=== PATIENT | male | born 1990 | race Caucasian/White ===

== ENCOUNTER 2021-08-26 21:11 | Emergency (ER) | payer MEDICAID ==
[2021-08-26] MEDS ORDERED: LORazepam 1 MG Tab PO ONE (21:16)
[2021-08-26] MEDS ORDERED: LORazepam 2 MG/ML SDV IVPUSH ONE (21:25)
[2021-08-26] MEDS ORDERED: LORazepam 2 MG/ML SDV IM ONE (21:25)
[2021-08-26] MEDS ORDERED: Ondansetron 4 MG/2 ML SDV IVPUSH ONE (21:26)
[2021-08-26] MEDS ORDERED: MVI, Adult with Vitamin K 10 ML, Thiamine 100 MG, Folic Acid 1 MG, Magnesium Sulfate 3 ... IV SCH ×5 (21:30)
--- NOTE | 2021-08-26 21:34 | EDM.PDOC ---
ED HPI GENERAL MEDICAL PROBLEM - General Stated Complaint: INTOXICATED Time Seen by Provider: 08/26/21 21:12 Source of Information: Reports: Patient - History of Present Illness INITIAL COMMENTS - FREE TEXT/NARRATIVE: 30-year-old gentleman came to the emergency department after having a seizure according to the patient. He states that he drinks alcohol daily. He has not had any alcohol for about 24 hours. He states that he normally drinks at least 12 beers and also drinks hard liquor daily. He states the beers are usually 16 ounce. He occasionally will drink double alcohol content beer. He has had an ongoing drinking problem for many years. Denied any other acute medical complaints. He states that he just feels really bad, really weak. - Related Data Allergies Allergy/AdvReac Type Severity Reaction Status Date / Time No Known Allergies Allergy Verified 08/26/21 22:16 Home Meds: Home Meds . [Unable to Verify Home Med List] 08/26/21 [History] ED ROS GENERAL - Review of Systems Review Of Systems: See Below Constitutional: Reports: Weakness, Fatigue HEENT: Reports: No Symptoms Respiratory: Reports: No Symptoms Cardiovascular: Reports: No Symptoms Endocrine: Reports: No Symptoms GI/Abdominal: Reports: Nausea, Vomiting : Reports: No Symptoms Musculoskeletal: Reports: No Symptoms Skin: Reports: No Symptoms Neurological: Reports: No Symptoms Psychiatric: Reports: No Symptoms Hematologic/Lymphatic: Reports: No Symptoms Immunologic: Reports: No Symptoms ED EXAM, GENERAL - Physical Exam Exam: See Below Exam Limited By: No Limitations General Appearance: Alert, Mild Distress Eye Exam: Bilateral Eye: EOMI Head: Atraumatic, Normocephalic Neck: Normal Inspection Respiratory/Chest: No Respiratory Distress, Lungs Clear, Other (Tachypnea) Cardiovascular: No Murmur, Tachycardia Peripheral Pulses: 2+: Radial (L), Radial (R), Dorsalis Pedis (L), Dorsalis Pedis (R) GI/Abdominal: Normal Bowel Sounds, Soft, Non-Tender Back Exam: Normal Inspection Extremities: Normal Inspection Neurological: Alert, Oriented, Normal Cognition Psychiatric: Anxious Skin Exam: Warm, Dry Course - Vital Signs Text/Narrative:: Review of lab work shows that the patient is negative for COVID-19. Blood analysis shows that he is positive for methamphetamines. Blood alcohol level is less than 0.03. He has elevated liver enzymes but normal alkaline phosphatase, likely prior hepatitis. Patient also has acute kidney injury likely secondary to dehydration secondary to vomiting. Mildly reduced potassium. Patient was given banana bag, Zofran, 1 mg Ativan IV followed by D5 half-normal saline with 20 mill EQ potassium chloride. Note that patient's blood glucose was 71. Patient states that he felt better after the banana bag was given. Last Recorded V/S: Last Vital Signs Temp 36.6 C 08/26/21 21:20 Pulse 1 L 08/26/21 21:20 Resp 18 08/26/21 21:20 BP 167/87 H 08/26/21 21:20 Pulse Ox 96 08/26/21 21:20 - Orders/Labs/Meds Orders: Active Orders 24 hr Category Date Time Status Notify Provider [RC] PRN Care 08/26/21 22:22 Active POC Glucose [Blood Glucose Check, Bedside] [RC] ONETIME Care 08/26/21 21:26 Active Dextrose 5%-1/2 Normal Saline with KCl 20 mEq @ 125 mL/ Med 08/27/21 00:15 Ordered Hr (1000 mL) D5 1/2 NS w/ 20 mEq/L KCl 1,000 ml IV ASDIRECTED MVI, Adult with Vitamin K [Infuvite Adult] 10 ml Med 08/26/21 21:30 Active Thiamine [Vitamin B-1] 100 mg Folic Acid 1 mg Magnesium Sulfate [Magnesium Sulfate 50%] 3 gm Sodium Chloride 0.9% [Normal Saline] 1,000 ml IV ASDIRECTED Medication Orders Multivitamins/Minerals 10 ml/Thiamine HCl 100 mg/ Folic Acid 1 mg/ Magnesium Sulfate 3 gm/ Sodium Chloride 1,017.2 mls @ 999 mls/hr IV ASDIRECTED [facility] Last Admin: 08/26/21 21:50 Dose: 999 mls/hr Documented by: ILYA Potassium Chloride/Dextrose/Sod Cl (D5 1/2 Ns W/ 20 Meq/L Kcl) 1,000 mls @ 125 mls/hr IV ASDIRECTED [facility] Labs: Laboratory Tests 08/26/21 08/26/21 08/26/21 Range/Units 21:35 21:35 21:35 WBC 4.7 (3.2-10.1) x10-3/uL RBC 4.15 (3.90-5.90) x10(6)uL Hgb 13.3 (12.9-17.7) g/dL Hct 39.7 (38.3-50.1) % MCV 95.7 (80.8-98.7) fL MCH 32.1 (27.0-33.3) pg MCHC 33.6 (28.7-35.3) g/dL RDW 18.2 H (12.4-15.0) % Plt Count 273 (117-477) x10(3)uL MPV 7.7 (6.7-11.0) fL Neut % (Auto) 54.6 (40.3-71.8) % Lymph % (Auto) 20.7 (15.8-45.3) % [place] % (Auto) 22.2 H (5.5-15.2) % Eos % (Auto) 1.0 (0.1-6.8) % Baso % (Auto) 1.5 (0.3-3.8) % Neut # (Auto) 2.5 (1.7-6.9) x10-3/uL Lymph # (Auto) 1.0 (0.5-4.5) x10-3/uL [place] # (Auto) 1.0 (0.0-1.2) x10-3/uL Eos # (Auto) 0.0 (0.0-0.6) x10-3/uL Baso # (Auto) 0.1 (0.0-0.3) x10-3/uL Sodium 136 (135-145) mmol/L Potassium 3.4 L (3.5-5.3) mmol/L Chloride 95 L (100-110) mmol/L Carbon Dioxide 21 (21-32) mmol/L BUN 6 L (7-18) mg/dL Creatinine 1.7 H (0.70-1.30) mg/dL Est Cr Clr Drug Dosing TNP Estimated GFR (MDRD) 47 L (>60) BUN/Creatinine Ratio 3.5 L (9-20) Glucose 71 L (80-116) mg/dL Calcium 9.6 (8.6-10.2) mg/dL Magnesium (1.8-2.5) mg/dL Total Bilirubin 1.4 H (0.1-1.3) mg/dL AST 513 H* (5-25) IU/L ALT 635 H* (12-36) U/L Alkaline Phosphatase 99 (56-112) IU/L Total Protein 8.8 H (6.0-8.0) g/dL Albumin 4.5 (3.5-5.2) g/dL Globulin 4.3 g/dL Albumin/Globulin Ratio 1.1 Urine Color (YELLOW) Urine Appearance (CLEAR) Urine pH (5.0-6.5) Ur Specific [place] (1.010-1.025) Urine Protein (NEGATIVE) mg/dL Urine Glucose (UA) (NORMAL) mg/dL Urine Ketones (NEGATIVE) mg/dL Urine Occult Blood (NEGATIVE) Urine Nitrite (NEGATIVE) Urine Bilirubin (NEGATIVE) Urine Urobilinogen (NEGATIVE) mg/dL Ur Leukocyte Esterase (NEGATIVE) Urine RBC (0-5) Urine WBC (0-5) Ur Squamous Epith Cells (NS,R,O) Urine Bacteria (NS) Urine Opiates Screen (NEGATIVE) Ur Buprenorphine Scrn (NEGATIVE) Ur Oxycodone Screen (NEGATIVE) Urine Methadone Screen (NEGATIVE) Ur Propoxyphene Screen (NEGATIVE) Ur Barbiturates Screen (NEGATIVE) Ur Tricyclics Screen (NEGATIVE) Ur Phencyclidine Scrn (NEGATIVE) Ur Amphetamine Screen (NEGATIVE) U Methamphetamines Scrn (NEGATIVE) U Benzodiazepines Scrn (NEGATIVE) U Cocaine Metab Screen (NEGATIVE) U Marijuana (THC) Screen (NEGATIVE) Ethyl Alcohol < 0.03 (<0.03) % SARS-CoV-2 RNA (KATT) (NEGATIVE) 08/26/21 08/26/21 08/26/21 Range/Units 21:35 21:40 21:40 WBC (3.2-10.1) x10-3/uL RBC (3.90-5.90) x10(6)uL Hgb (12.9-17.7) g/dL Hct (38.3-50.1) % MCV (80.8-98.7) fL MCH (27.0-33.3) pg MCHC (28.7-35.3) g/dL RDW (12.4-15.0) % Plt Count (117-477) x10(3)uL MPV (6.7-11.0) fL Neut % (Auto) (40.3-71.8) % Lymph % (Auto) (15.8-45.3) % [place] % (Auto) (5.5-15.2) % Eos % (Auto) (0.1-6.8) % Baso % (Auto) (0.3-3.8) % Neut # (Auto) (1.7-6.9) x10-3/uL Lymph # (Auto) (0.5-4.5) x10-3/uL [place] # (Auto) (0.0-1.2) x10-3/uL Eos # (Auto) (0.0-0.6) x10-3/uL Baso # (Auto) (0.0-0.3) x10-3/uL Sodium (135-145) mmol/L Potassium (3.5-5.3) mmol/L Chloride (100-110) mmol/L Carbon Dioxide (21-32) mmol/L BUN (7-18) mg/dL Creatinine (0.70-1.30) mg/dL Est Cr Clr Drug Dosing Estimated GFR (MDRD) (>60) BUN/Creatinine Ratio (9-20) Glucose (80-116) mg/dL Calcium (8.6-10.2) mg/dL Magnesium 2.0 (1.8-2.5) mg/dL Total Bilirubin (0.1-1.3) mg/dL AST (5-25) IU/L ALT (12-36) U/L Alkaline Phosphatase (56-112) IU/L Total Protein (6.0-8.0) g/dL Albumin (3.5-5.2) g/dL Globulin g/dL Albumin/Globulin Ratio Urine Color Yellow (YELLOW) Urine Appearance Clear (CLEAR) Urine pH 7.0 H (5.0-6.5) Ur Specific [place] 1.010 (1.010-1.025) Urine Protein 30 H (NEGATIVE) mg/dL Urine Glucose (UA) Normal (NORMAL) mg/dL Urine Ketones 50 H (NEGATIVE) mg/dL Urine Occult Blood Moderate H (NEGATIVE) Urine Nitrite Negative (NEGATIVE) Urine Bilirubin Negative (NEGATIVE) Urine Urobilinogen Normal (NEGATIVE) mg/dL Ur Leukocyte Esterase Negative (NEGATIVE) Urine RBC 0-5 (0-5) Urine WBC 0-5 (0-5) Ur Squamous Epith Cells Occasional (NS,R,O) Urine Bacteria Rare H (NS) Urine Opiates Screen Negative (NEGATIVE) Ur Buprenorphine Scrn Negative (NEGATIVE) Ur Oxycodone Screen Negative (NEGATIVE) Urine Methadone Screen Negative (NEGATIVE) Ur Propoxyphene Screen Negative (NEGATIVE) Ur Barbiturates Screen Negative (NEGATIVE) Ur Tricyclics Screen Negative (NEGATIVE) Ur Phencyclidine Scrn Negative (NEGATIVE) Ur Amphetamine Screen Positive H (NEGATIVE) U Methamphetamines Scrn Positive H (NEGATIVE) U Benzodiazepines Scrn Negative (NEGATIVE) U Cocaine Metab Screen Negative (NEGATIVE) U Marijuana (THC) Screen Positive H (NEGATIVE) Ethyl Alcohol (<0.03) % SARS-CoV-2 RNA (KATT) (NEGATIVE) 08/26/21 Range/Units 22:20 WBC (3.2-10.1) x10-3/uL RBC (3.90-5.90) x10(6)uL Hgb (12.9-17.7) g/dL Hct (38.3-50.1) % MCV (80.8-98.7) fL MCH (27.0-33.3) pg MCHC (28.7-35.3) g/dL RDW (12.4-15.0) % Plt Count (117-477) x10(3)uL MPV (6.7-11.0) fL Neut % (Auto) (40.3-71.8) % Lymph % (Auto) (15.8-45.3) % [place] % (Auto) (5.5-15.2) % Eos % (Auto) (0.1-6.8) % Baso % (Auto) (0.3-3.8) % Neut # (Auto) (1.7-6.9) x10-3/uL Lymph # (Auto) (0.5-4.5) x10-3/uL [place] # (Auto) (0.0-1.2) x10-3/uL Eos # (Auto) (0.0-0.6) x10-3/uL Baso # (Auto) (0.0-0.3) x10-3/uL Sodium (135-145) mmol/L Potassium (3.5-5.3) mmol/L Chloride (100-110) mmol/L Carbon Dioxide (21-32) mmol/L BUN (7-18) mg/dL Creatinine (0.70-1.30) mg/dL Est Cr Clr Drug Dosing Estimated GFR (MDRD) (>60) BUN/Creatinine Ratio (9-20) Glucose (80-116) mg/dL Calcium (8.6-10.2) mg/dL Magnesium (1.8-2.5) mg/dL Total Bilirubin (0.1-1.3) mg/dL AST (5-25) IU/L ALT (12-36) U/L Alkaline Phosphatase (56-112) IU/L Total Protein (6.0-8.0) g/dL Albumin (3.5-5.2) g/dL Globulin g/dL Albumin/Globulin Ratio Urine Color (YELLOW) Urine Appearance (CLEAR) Urine pH (5.0-6.5) Ur Specific [place] (1.010-1.025) Urine Protein (NEGATIVE) mg/dL Urine Glucose (UA) (NORMAL) mg/dL Urine Ketones (NEGATIVE) mg/dL Urine Occult Blood (NEGATIVE) Urine Nitrite (NEGATIVE) Urine Bilirubin (NEGATIVE) Urine Urobilinogen (NEGATIVE) mg/dL Ur Leukocyte Esterase (NEGATIVE) Urine RBC (0-5) Urine WBC (0-5) Ur Squamous Epith Cells (NS,R,O) Urine Bacteria (NS) Urine Opiates Screen (NEGATIVE) Ur Buprenorphine Scrn (NEGATIVE) Ur Oxycodone Screen (NEGATIVE) Urine Methadone Screen (NEGATIVE) Ur Propoxyphene Screen (NEGATIVE) Ur Barbiturates Screen (NEGATIVE) Ur Tricyclics Screen (NEGATIVE) Ur Phencyclidine Scrn (NEGATIVE) Ur Amphetamine Screen (NEGATIVE) U Methamphetamines Scrn (NEGATIVE) U Benzodiazepines Scrn (NEGATIVE) U Cocaine Metab Screen (NEGATIVE) U Marijuana (THC) Screen (NEGATIVE) Ethyl Alcohol (<0.03) % SARS-CoV-2 RNA (KATT) Negative (NEGATIVE) Meds: Medications Generic Name Dose Route Start Last Admin Trade Name Freq PRN Reason Stop Dose Admin Multivitamins/Minerals 10 ml/ 1,017.2 mls @ 999 mls/hr 08/26/21 21:30 08/26/21 21:50 Thiamine HCl 100 mg/ Folic IV 999 mls/hr Acid 1 mg/ Magnesium Sulfate 3 ASDIRECTED JONA Administration gm/ Sodium Chloride Potassium Chloride/Dextrose/Sod Cl 1,000 mls @ 125 mls/hr 08/27/21 00:15 D5 1/2 Ns W/ 20 Meq/L Kcl IV ASDIRECTED JONA Discontinued Medications Generic Name Dose Route Start Last Admin Trade Name Kamryn PRN Reason Stop Dose Admin Sodium Chloride 1,000 mls @ 999 mls/hr 08/26/21 23:45 Normal Saline IV ASDIRECTED JONA Potassium Chloride 20 meq/ 100 mls @ 50 mls/hr 08/26/21 23:59 Premix IV 08/27/21 01:58 ONETIME ONE Potassium Chloride/Dextrose/Sod Cl Confirm 08/27/21 00:04 D5 1/2 Ns W/ 20 Meq/L Kcl Administered 08/27/21 00:05 Dose 1,000 mls @ as directed .ROUTE .STK-MED ONE Lorazepam 1 mg 08/26/21 21:16 Lorazepam 1 Mg Tab PO 08/26/21 21:17 ONETIME ONE Lorazepam 1 mg 08/26/21 21:25 Lorazepam 2 Mg/Ml Sdv IM 08/26/21 21:26 ONETIME ONE Lorazepam 1 mg 08/26/21 21:25 08/26/21 21:35 Lorazepam 2 Mg/Ml Sdv IVPUSH 08/26/21 21:26 1 mg ONETIME ONE Administration Ondansetron HCl 4 mg 08/26/21 21:26 08/26/21 21:30 Ondansetron 4 Mg/2 Ml Sdv IVPUSH 08/26/21 21:27 4 mg ONETIME ONE Administration Departure - Departure Time of Disposition: 00:19 Disposition: DC/Tfer to Psych Hosp/Unit [facility] Condition: Fair Clinical Impression: Methamphetamine intoxication, Hepatitis, Acute kidney injury - Discharge Information *PRESCRIPTION DRUG MONITORING PROGRAM REVIEWED*: Not Applicable *COPY OF PRESCRIPTION DRUG MONITORING REPORT IN PATIENT NATALI: Not Applicable Instructions: Alcohol Intoxication, [id number], Methamphetamines Use Disorder, Alcohol Use Disorder, Acute Kidney Injury, Adult Additional Instructions: Follow-up with primary care physician. Sepsis Event Note (ED) - Focused Exam Vital Signs: Vital Signs Temp Pulse Resp BP Pulse Ox 08/26/21 21:20 36.6 C 1 L 18 167/87 H 96 - My Orders Last 24 Hours: My Active Orders 08/26/21 21:26 POC Glucose [Blood Glucose Check, Bedside] [RC] ONETIME 08/26/21 21:30 MVI, Adult with Vitamin K [Infuvite Adult] 10 ml Thiamine [Vitamin B-1] 100 mg Folic Acid 1 mg Magnesium Sulfate [Magnesium Sulfate 50%] 3 gm Sodium Chloride 0.9% [Normal Saline] 1,000 ml IV ASDIRECTED 08/26/21 22:22 Notify Provider [RC] PRN 08/27/21 00:15 Dextrose 5%-1/2 Normal Saline with KCl 20 mEq @ 125 mL/Hr (1000 mL) D5 1/2 NS w/ 20 mEq/L KCl 1,000 ml IV ASDIRECTED - Assessment/Plan Last 24 Hours: My Active Orders 08/26/21 21:26 POC Glucose [Blood Glucose Check, Bedside] [RC] ONETIME 08/26/21 21:30 MVI, Adult with Vitamin K [Infuvite Adult] 10 ml Thiamine [Vitamin B-1] 100 mg Folic Acid 1 mg Magnesium Sulfate [Magnesium Sulfate 50%] 3 gm Sodium Chloride 0.9% [Normal Saline] 1,000 ml IV ASDIRECTED 08/26/21 22:22 Notify Provider [RC] PRN 08/27/21 00:15 Dextrose 5%-1/2 Normal Saline with KCl 20 mEq @ 125 mL/Hr (1000 mL) D5 1/2 NS w/ 20 mEq/L KCl 1,000 ml IV ASDIRECTED
[2021-08-26] MEDS ORDERED: Sodium Chloride 0.9% 1,000 ML IV SCH (23:45)
[2021-08-26] MEDS ORDERED: Potassium Chloride 20 MEQ in Premix Bag 1 BAG IV ONE (23:59)
[2021-08-27] MEDS ORDERED: D5 1/2 NS w/ 20 mEq/L KCl 1,000 ML ONE (00:04)
[2021-08-27] MEDS ORDERED: D5 1/2 NS w/ 20 mEq/L KCl 1,000 ML IV SCH (00:15)
[2021-08-27] MEDS ORDERED: LORazepam 1 MG Tab PO ONE (03:59)
== END 2021-08-27 04:50 ==
LOC: FB.ED 21:11
DX: F15.129 Other stimulant abuse with intoxication, unspecified (principal); K75.9 Inflammatory liver disease, unspecified; N17.9 Acute kidney failure, unspecified; Z20.822 Contact with and (suspected) exposure to COVID-19
CPT/HCPCS: 36415; 80053; 80307; 81001; 83735; 85025; 96365; 96366; 96367; 96375; 99285-25; A9270-GY; J2060; J2405; J3411; J3475; J3480; J3490; J7030; U0002